=== PATIENT | female | born 1935 | race Caucasian/White ===

== ENCOUNTER 2016-09-23 18:01 | Inpatient (IN) | payer OTHER, MEDICAID ==
[~2016-09-23] VITALS: Ht 157.5 cm; Wt 54.4 kg
[2016-09-23 18:07] VITALS: BP 133/67
--- NOTE | 2016-09-23 18:24 | NUR ---
Patient going to CT via wheelchair per tech--from lobby.
--- NOTE | 2016-09-23 18:33 | NUR ---
Patient back from CT via wheelchair per [facility]--to lobby.
--- NOTE | 2016-09-23 18:53 | NUR ---
Patient to bed 03.
[2016-09-23 18:56] LABS: HEMATOCRIT 44.7 % (36-48); HEMOGLOBIN 14.7 g/dL (12.0-16.0); MEAN CORPUSCULAR HEMOGLOBIN 31 pg (27-31); MEAN CORPUSCULAR HGB CONC 33 g/dL (33-37); MEAN CORPUSCULAR VOLUME 93 fL (80-94); PLATELET COUNT (AUTO) 305 K/uL (140-450); RED BLOOD CELL COUNT(AUTO) 4.84 MIL/uL (4.20-5.40); RED CELL DISTRIBUTION WIDTH 12.8 % (11.6-13.7); WHITE BLOOD COUNT (AUTO) 16.2 K/uL (4.8-10.8)
--- NOTE | 2016-09-23 19:00 | NUR ---
PATIENT PRESENTS TO ED WITH C/O ABDOMINAL PAIN, NAUSEA AND VOMITING . PT STATES THE PAIN STARTED AT 1000, AND SHE STARTED VOMITING SHORTLY THEREAFTER . DENIES ANY DIARRHEA; SKIN IS PALE/WARM/DRY; AAOX4 WITH EVEN AND STEADY GAIT; LUNGS CLEAR BL; HR EVEN AND REGULAR; PT DENIES ANY FEVER, CP, SOB, OR COUGH AT THIS TIME; PATIENT STATES PAIN OF 10/10 AT THIS TIME; VSS; PATIENT POSITIONED FOR COMFORT; HOB ELEVATED; BEDRAILS UP X2; BED DOWN. ER MD MADE AWARE OF PT STATUS. GRANDDAUGHTER AT BEDSIDE.
[2016-09-23 19:03] LABS: ANION GAP 13.9 (8-16); CALCIUM 9.6 mg/dL (8.5-10.1); CARBON DIOXIDE 28.4 mmol/L (21-32); CHLORIDE 99 mmol/L (98-107); GLUCOSE 176 mg/dL (74-106); POTASSIUM 3.3 mmol/L (3.5-5.1); SODIUM SERUM 138 mmol/L (136-145); UREA NITROGEN, BLOOD 13 mg/dL (7-18)
--- NOTE | 2016-09-23 19:04 | NUR ---
Mounika AT BEDSIDE.
[2016-09-23 19:08] LABS: ALANINE AMINOTRANSFERASE 121 U/L (12-78); ALBUMIN 4.1 g/dL (3.4-5.0); ALKALINE PHOSPHATASE 98 U/L (46-116); ASPARTATE AMINOTRANSFERASE 199 U/L (15-37); LIPASE 225 U/L (73-393); TOTAL BILIRUBIN 2.1 mg/dL (0.0-1.0); TOTAL PROTEIN, SERUM 8.8 g/dL (6.4-8.2)
--- NOTE | 2016-09-23 19:10 | NUR ---
REPORT RECEIVED FROM VALENTINO JUDGE
[2016-09-23 19:13] LABS: BAND % (MANUAL) 18 % (0-8); EOSINOPHILS % (MANUAL) 0 % (0-4); LYMPHOCYTES % (MANUAL) 1 % (20-46); MONOCYTES % (MANUAL) 1 % (5-12); NEUTROPHILS % (MANUAL) 80 (43-65); PLATELET ESTIMATE ADEQUATE
--- NOTE | 2016-09-23 19:15 | NUR ---
Pt report given to VALENTINO ALMANZAR. Transfer of care at this time.
[2016-09-23] MEDS ORDERED: NACL 0.9% 1,000 ML IV ONE ×2 (19:30→20:55)
[2016-09-23] MEDS ORDERED: metroNIDAZOLE 500 MG/NS PREMIX 100 ML IV ONE (19:30)
[2016-09-23] MEDS ORDERED: LEVOFLOXACIN 750 MG/D5W PREMIX 150 ML IV ONE (19:30)
[2016-09-23] MEDS ORDERED: MORPHINE SULFATE 4 MG/ML SYR IVP ONE (19:50)
[2016-09-23] MEDS ORDERED: ONDANSETRON 4 MG/2 ML VIAL IVP ONE (19:50)
[2016-09-23] MEDS ORDERED: SIMV20TA1 PO (20:02)
[2016-09-23] MEDS ORDERED: AMLO10TA PO (20:02)
[2016-09-23] MEDS ORDERED: GABA100C PO (20:02)
[2016-09-23] MEDS ORDERED: NAPR500T1 PO (20:02)
[2016-09-23] MEDS ORDERED: GLIP10TA3 PO (20:02)
--- NOTE | 2016-09-23 20:15 | NUR ---
Ultrasound at bedside.
[2016-09-23 20:17] LABS: LACTIC ACID 2.5 mmol/L (0.4-2.0)
[2016-09-23] MEDS ORDERED: DOCUSATE SODIUM 100 MG GELCAP PO PRN (21:25)
[2016-09-23] MEDS ORDERED: HYDROcodone/APAP 5/325 MG 1 TAB TAB PO PRN (21:25)
[2016-09-23] MEDS ORDERED: MORPHINE SULFATE 2 MG/ML SYR IVP PRN (21:25)
[2016-09-23] MEDS ORDERED: ACETAMINOPHEN 325 MG TAB PO PRN (21:25)
[2016-09-23] MEDS ORDERED: POTASSIUM CHLORIDE 20% 40 MEQ/15 ML UDC PO ONE (21:35)
--- NOTE | 2016-09-23 21:48 | NUR ---
Patient will be admitted to care of DR OLEA. Admited to TELE. Will go to room. Belongings list completed. Report to VALENTINO CARTER
--- NOTE | 2016-09-23 21:52 | NUR ---
PT RETURN FROM XRAY
[2016-09-23 21:57] LABS: INR 1.1 (0.8-1.2); PARTIAL THROMBOPLASTIN TIME 23.1 secs (22-35.6); PROTHROMBIN TIME 10.4 secs (10.8-13.4)
[2016-09-23 22:00] VITALS: BP 128/68
--- NOTE | 2016-09-23 22:00 | NUR ---
Admitted from ER, with chief complaint of ABD PAIN. PT FAMILY AT BEDSIDE. ADMISSION SCREENING PERFORMED WITH ROUTE CONTRACTOR SERVICE. 80 y/o, Female, Cooperative, PT AOX4, ABLE TO VERBALIZE NEEDS. PT DENIES CHEST PAIN, SOB OR S/S OF ACUTE DISTRESS. PT C/O SLIGHT NAUSEA. ABDOMEN SOFT, NONTENDER. BOWEL SOUNDS ACTIVE, PT STATED LAST BM THIS MORNING. PT DENIES PAIN AT THIS TIME. DISCUSSED AND REVIEWED PLAN OF CARE WITH PT AND FAMILY. PT VERBALIZES UNDERSTANDING. WIRE WRAPPER MACHINE OPERATOR IN PLACE. SCDS IN PLACE. IV ACCESS ASYMPTOMATIC, PATENT AND INTACT. IVF INFUSING WELL. oriented to call light, bed, phone,television, bathroom, smoking policy, visiting hours, procedures, ID bracelet on. Belongings list checked. PT OBSERVED TO AMBULATE INDEPENDENTLY WITH STEADY GAIT AND STANDBY ASSISTANCE. SAFETY MEASURES ENSURED. CALL LIGHT WITHIN REACH. WILL CONTINUE TO MONITOR.
[2016-09-23 22:07] LABS: BILIRUBIN,DIRECT 1.1 mg/dL (0.0-0.3); CHOL/HDL RATIO 3.9 (1-4.5); FREE T4 (FREE THYROXINE) 1.19 ng/dL (0.76-1.46); THYROID STIMULATING HORMONE 2.06 uIU/mL (0.34-3.76)
[2016-09-23 22:18] LABS: APPEARANCE,URINE SL CLOUDY (CLEAR); BLOOD, URINE TRACE-I (NEGATIVE); COLOR,URINE YELLOW (YELLOW); LEUKOCYTE ESTERASE ,URINE TRACE (NEGATIVE); NITRITE, URINE NEGATIVE (NEGATIVE); PROTEIN,URINE TRACE (NEGATIVE); UGLUCOSE NEGATIVE (NEGATIVE)
[2016-09-23 22:28] LABS: BILIRUBIN,URINE NEGATIVE (NEGATIVE)
[2016-09-23 22:29] LABS: BACTERIA,URINE 4+ /HPF (None Seen); CALCIUM OXALATE CRYSTALS,UR 0-10 /HPF (None Seen)
[2016-09-23 22:43] LABS: AMPHETAMINE, URINE NEG. ng/ml (NEG <=1000); BARBITURATE, URINE NEG. ng/ml (NEG <=200); BENZODIAZEPINE, URINE NEG. ng/mL (NEG <=200); CANNABINOID, URINE NEG. ng/mL (NEG <=50); COCAINE, URINE NEG. ng/mL (NEG <=300); OPIATE, URINE NEG. ng/mL (NEG <=2000); PHENCYCLIDINE SCREEN,URINE NEG. ng/mL (NEG <=25)
[2016-09-23] MEDS: NACL 0.9% 500 ML IV SCH (23:06)
[2016-09-23] MEDS: ONDANSETRON 4 MG/2 ML VIAL IVP PRN (23:54)
--- NOTE | 2016-09-23 23:54 | NUR ---
WAS INFORMED BY DROPPER TANK STORAGE AND PT'S FAMILY THAT PT HAD A VOMITING EPISODE. ADMINISTERED ZOFRAN IV WITH EDUCATION ORDERED. PT TOLERATED WELL. WILL CONTINUE TO MONITOR.
[2016-09-24] VITALS: BP 130/65
[2016-09-24] MEDS ORDERED: PNEUMOCOCCAL VACCINE 23 MCG/0.5 ML VIAL IMVAC SCH (01:05)
[2016-09-24] MEDS ORDERED: INSULIN LISPRO SLIDING SCALE 100 UNITS/ML VIAL SUBQ PRN (01:35)
[2016-09-24] MEDS ORDERED: ZOLPIDEM 5 MG TAB PO PRN (01:35)
[2016-09-24] MEDS ORDERED: DEXTROSE 50% 50 ML SYR IVP PRN (01:35)
--- NOTE | 2016-09-24 01:40 | NUR ---
BLOOD SUGAR 153. WILL HOLD INSULIN COVERAGE DUE TO PT NPO AT THIS TIME. CONDITION STABLE. ALL NEEDS MET. SAFETY MEASURES ENSURED. CALL LIGHT WITHIN REACH.
--- NOTE | 2016-09-24 01:42 | NUR ---
RECEIVED CALL FROM DR OLEA. MADE AWARE OF PT INSOMNIA AND THAT PT IS DIABETIC. ORDERS PENDING FOR INSOMNIA PRN AND SLIDING SCALE INSULIN PROTOCOL. MADE MD AWARE THAT LEVAQUIN IV WAS ONLY ONE TIME ORDER, NO ORDERS, MD WILL SEE PT IN THE MORNING.
--- NOTE | 2016-09-24 02:30 | NUR ---
ADMINISTERED TAURUS FOR PT'S INSOMNIA. PT TOLERATED WELL. SAFETY MEASURES ENSURED. CALL LIGHT WITHIN REACH.
[2016-09-24] MEDS: NACL 0.9% 500 ML IV SCH (03:26)
[2016-09-24 04:00] VITALS: BP 108/54
[2016-09-24] MEDS ORDERED: metroNIDAZOLE 500 MG/NS PREMIX 100 ML IV ONE (04:28)
--- NOTE | 2016-09-24 04:30 | NUR ---
PT RESTING COMFORTABLY. CONDITION STABLE. ALL NEEDS MET. SAFETY MEASURES ENSURED. WILL CONTINUE TO MONITOR. FLAGYL 250MG IN 50ML NS PREMIX NOT AVAILABLE. WILL ADMINISTER HALF OF 500MG IN 100ML NS PREMIX AT THE ORDERED RATE 50ML/HR. PT EDUCATED, VERBALIZES UNDERSTANDING. IVF INFUSING WELL.
[2016-09-24] MEDS ORDERED: metroNIDAZOLE 250 MG/NS PREMIX 50 ML IV SCH (05:00)
[2016-09-24] MEDS: ONDANSETRON 4 MG/2 ML VIAL IVP PRN (05:36)
[2016-09-24 06:38] LABS: HEMATOCRIT 34.8 % (36-48); MEAN CORPUSCULAR HEMOGLOBIN 32 pg (27-31); MEAN CORPUSCULAR HGB CONC 34 g/dL (33-37); MEAN CORPUSCULAR VOLUME 92 fL (80-94); PLATELET COUNT (AUTO) 248 K/uL (140-450); RED BLOOD CELL COUNT(AUTO) 3.78 MIL/uL (4.20-5.40); RED CELL DISTRIBUTION WIDTH 13.1 % (11.6-13.7); WHITE BLOOD COUNT (AUTO) 29.2 K/uL (4.8-10.8)
[2016-09-24 06:47] LABS: ANION GAP 17.4 (8-16); CALCIUM 8.1 mg/dL (8.5-10.1); CARBON DIOXIDE 22.3 mmol/L (21-32); CHLORIDE 103 mmol/L (98-107); CREATININE 0.9 mg/dL (0.6-1.3); GLUCOSE 157 mg/dL (74-106); MAGNESIUM 1.5 mg/dL (1.8-2.4); PHOSPHORUS 4.1 mg/dL (2.5-4.9); POTASSIUM 3.7 mmol/L (3.5-5.1); SODIUM SERUM 139 mmol/L (136-145); UREA NITROGEN, BLOOD 13 mg/dL (7-18)
[2016-09-24] MEDS: BLOOD GLUCOSE MONITORING 1 DEV DEV FS SCH ×4 (06:50→20:40)
--- NOTE | 2016-09-24 06:51 | NUR ---
BLOOD SUGAR 153, WILL HOLD INSULIN COVERAGE, PT NPO. CONDITION STABLE.
--- NOTE | 2016-09-24 07:27 | NUR ---
ENDORSED PLAN OF CARE TO AM NURSE. CONDITION STABLE.
[2016-09-24 07:59] LABS: BAND % (MANUAL) 26 % (0-8); LYMPHOCYTES % (MANUAL) 2 % (20-46); MONOCYTES % (MANUAL) 2 % (5-12); NEUTROPHILS % (MANUAL) 70 (43-65)
[2016-09-24 08:00] VITALS: BP 120/62
[2016-09-24] MEDS ORDERED: MAG SULF 2000 MG/WATER PREMIX 50 ML IV SCH (08:00)
[2016-09-24] MEDS: FAMOTIDINE 20 MG TAB PO SCH (09:00)
[2016-09-24] MEDS: glipiZIDE 10 MG TAB PO SCH ×2 (09:00→20:40)
[2016-09-24] MEDS: PANTOPRAZOLE 40 MG INJ VIAL IVP SCH (10:08)
[2016-09-24] MEDS: GABAPENTIN 100 MG CAP PO SCH (10:09)
[2016-09-24] MEDS: amLODIPine 5 MG TAB PO SCH (10:09)
[2016-09-24] MEDS: LACTOBACILLUS RHAMNOSUS GG 1 EACH CAP PO SCH (10:10)
--- NOTE | 2016-09-24 10:22 | NUR ---
PATIENT HAS BEEN SCREENED AND CATEGORIZED MODERATE NUTRITION RISK. PATIENT WILL BE SEEN WITHIN 3-5 DAYS OF ADMISSION. 09/26/16-09/28/[address]
--- NOTE | 2016-09-24 11:29 | NUR ---
FAXED INITIAL REVIEW TO [phone] PHONE ASHLEE [phone]
[2016-09-24 12:00] VITALS: BP 121/68
[2016-09-24 14:24] LABS: ALANINE AMINOTRANSFERASE 193 U/L (12-78); ALBUMIN 2.9 g/dL (3.4-5.0); ALKALINE PHOSPHATASE 76 U/L (46-116); ANION GAP 15.3 (8-16); ASPARTATE AMINOTRANSFERASE 187 U/L (15-37); CALCIUM 8.1 mg/dL (8.5-10.1); CARBON DIOXIDE 23.4 mmol/L (21-32); CHLORIDE 104 mmol/L (98-107); CREATININE 0.9 mg/dL (0.6-1.3); GLUCOSE 98 mg/dL (74-106); POTASSIUM 3.7 mmol/L (3.5-5.1); SODIUM SERUM 139 mmol/L (136-145); TOTAL BILIRUBIN 3.7 mg/dL (0.0-1.0); TOTAL PROTEIN, SERUM 6.7 g/dL (6.4-8.2); UREA NITROGEN, BLOOD 12 mg/dL (7-18)
[2016-09-24] MEDS: metroNIDAZOLE 500 MG/NS PREMIX 100 ML IV SCH ×2 (14:32→20:39)
[2016-09-24 17:30] VITALS: BP 128/71
--- NOTE | 2016-09-24 17:53 | NUR ---
DR LOUISE PAGED, LEFT MESSAGE TO ASTRID ANSWERING SERVICE, PT BS 83 AN DPATIENT STILL NPO, CURRENTLY ON IVF NS.
--- NOTE | 2016-09-24 17:58 | NUR ---
SPOKE WITH DR. LOUISE AND SAID CONTINUE WITH NS IVF FOR NOW AND HOLD ALL DIABETIC MEDICATION WHILE PATIENT NPO.
[2016-09-24] MEDS ORDERED: LEVOFLOXACIN 750 MG/D5W PREMIX 150 ML IV ONE (18:30)
[2016-09-24] MEDS: NACL 0.9% 1,000 ML IV SCH ×2 (19:00→20:45)
--- NOTE | 2016-09-24 19:21 | NUR ---
SBAR REPORT GIVEN TO VALENTINO CLARK
--- NOTE | 2016-09-24 20:40 | NUR ---
SPOKE TO DR. GARCÍA AND NOTIFIED THE RESULT OF HIDA SCAN AND NEW ORDERS WERE GIVEN (PLS SEE CPOE.) NEW ORDERS NOTED AND CARRIED OUT. WILL CONTINUE TO MONITOR.
[2016-09-24] MEDS: SIMVASTATIN 20 MG TAB PO SCH (20:43)
--- NOTE | 2016-09-24 21:00 | NUR ---
PT SIGNED THE CONSENT FOR ERCP AFTER EXPLAINING THE PROCEDURE TO PT AND FAMILY AT BEDSIDE AND VERBALIZED UNDERSTANDING. CALL LIGHT WITHIN REACH. WILL CONTINUE TO MONITOR.
--- NOTE | 2016-09-24 21:40 | NUR ---
PT IS OFF THE UNIT GOING TO [facility] FOR ERCP.
[2016-09-24] MEDS ORDERED: PROPOFOL 200 MG/20 ML VIAL IV ONE (21:56)
--- NOTE | 2016-09-24 23:20 | NUR ---
CAME BACK FROM O.R[facility] IN STABLE CONDITION WITH VSS. WILL CONTINUE TO MONITOR.
[2016-09-25] VITALS: BP 124/68
[2016-09-25] MEDS: NACL 0.9% 1,000 ML IV SCH ×2 (00:18→16:06)
--- NOTE | 2016-09-25 01:00 | NUR ---
PT IS SLEEPING RIGHT NOW BUT EASILY AROUSABLE. NO S/S OF ANY DISCOMFORT AT THIS TIME. ALL NEEDS ARE ATTENDED. CALL LIGHT WITHIN REACH. WILL CONTINUE TO MONITOR.
[2016-09-25] MEDS: metroNIDAZOLE 500 MG/NS PREMIX 100 ML IV SCH ×3 (04:30→21:00)
--- NOTE | 2016-09-25 05:30 | NUR ---
AM CARE RENDERED. BED LINEN CHANGED. INSTRUCTED PATIENT TO REPOSITION. KEPT CLEAN AND DRY. CALL LIGHT WITHIN REACH. WILL CONTINUE TO MONITOR.
[2016-09-25 07:05] LABS: HEMOGLOBIN 12.4 g/dL (12.0-16.0); MEAN CORPUSCULAR HEMOGLOBIN 32 pg (27-31); MEAN CORPUSCULAR HGB CONC 34 g/dL (33-37); MEAN CORPUSCULAR VOLUME 93 fL (80-94); PLATELET COUNT (AUTO) 217 K/uL (140-450); RED BLOOD CELL COUNT(AUTO) 3.87 MIL/uL (4.20-5.40); RED CELL DISTRIBUTION WIDTH 13.2 % (11.6-13.7); WHITE BLOOD COUNT (AUTO) 17.5 K/uL (4.8-10.8)
[2016-09-25 07:14] LABS: ALANINE AMINOTRANSFERASE 150 U/L (12-78); ALBUMIN 2.7 g/dL (3.4-5.0); ALKALINE PHOSPHATASE 78 U/L (46-116); ANION GAP 13.1 (8-16); ASPARTATE AMINOTRANSFERASE 126 U/L (15-37); CALCIUM 7.9 mg/dL (8.5-10.1); CARBON DIOXIDE 24.1 mmol/L (21-32); CHLORIDE 106 mmol/L (98-107); CREATININE 0.8 mg/dL (0.6-1.3); GLUCOSE 94 mg/dL (74-106); MAGNESIUM 2.1 mg/dL (1.8-2.4); POTASSIUM 3.2 mmol/L (3.5-5.1); SODIUM SERUM 140 mmol/L (136-145); TOTAL BILIRUBIN 3.1 mg/dL (0.0-1.0); TOTAL PROTEIN, SERUM 6.6 g/dL (6.4-8.2); UREA NITROGEN, BLOOD 9 mg/dL (7-18)
--- NOTE | 2016-09-25 07:20 | NUR ---
RECEIVED PT IN BED. AWAKE, ALERT ORIENTED, X4. NO SOB NOTED. DENIES ANY PAIN OR DISCOMFORT AT THIS TIME. KEPT PT ON NPO EXCEPT MEDS. FAMILY AT BEDSIDE. CALL LIGHT WITHIN REACH. SAFETY PRECAUTION IN PLACE.
--- NOTE | 2016-09-25 07:30 | NUR ---
PT ENDORSE TO NEXT SHIFT FOR CONTINUITY OF CARE. PT ON STABLE CONDITION. Addendum: 09/25/16 at 2018 by Janett Singer RN DISREGARD ABOVE DOCUMENTATION. WRONG TIME
[2016-09-25 07:36] LABS: BAND % (MANUAL) 10 % (0-8); LYMPHOCYTES % (MANUAL) 10 % (20-46); MONOCYTES % (MANUAL) 3 % (5-12); NEUTROPHILS % (MANUAL) 77 (43-65)
[2016-09-25 08:00] VITALS: BP 131/66
[2016-09-25] MEDS: glipiZIDE 10 MG TAB PO SCH ×2 (09:00→20:51)
[2016-09-25] MEDS ORDERED: LACTOBACILLUS RHAMNOSUS GG 1 EACH CAP PO SCH (09:00)
--- NOTE | 2016-09-25 09:00 | NUR ---
order for heparin sodium 5,[address] GARCIA, DUE TO PT POSSIBLE FOR SURGERY.
[2016-09-25] MEDS: LACTOBACILLUS RHAMNOSUS GG 1 EACH CAP PO SCH (09:04)
[2016-09-25] MEDS: PANTOPRAZOLE 40 MG INJ VIAL IVP SCH (09:04)
[2016-09-25] MEDS: BLOOD GLUCOSE MONITORING 1 DEV DEV FS SCH ×4 (09:04→20:47)
[2016-09-25] MEDS: amLODIPine 5 MG TAB PO SCH (09:05)
[2016-09-25] MEDS: GABAPENTIN 100 MG CAP PO SCH (09:05)
[2016-09-25] MEDS: FAMOTIDINE 20 MG TAB PO SCH (09:05)
[2016-09-25] MEDS ORDERED: BENZOCAINE/MENTHOL 1 LOZ MM PRN (10:55)
[2016-09-25] MEDS ORDERED: guaiFENesin DM 200/20 MG-10 ML 10 ML UDC PO PRN (10:55)
[2016-09-25] MEDS ORDERED: POTASSIUM CHLORIDE 10 MEQ TABER PO SCH (11:10)
[2016-09-25 16:00] VITALS: BP 136/66
--- NOTE | 2016-09-25 16:38 | NUR ---
CALLED DR. FRANCE'S EXCHANGE TO FOLLOW UP WITH DOCTOR REGARDING PT SURGERY FOR CHOLELITHIASIS. AWAITING CALL BACK.
--- NOTE | 2016-09-25 16:57 | NUR ---
DR. FRANCE CALLED BACK AND SPOKE WITH CHARGE NURSE HE SAID HE WILL COME HERE AND WOULD WANT TO SPEAK WITH FAMILY LATER WHEN HE ARRIVE. CALLED GRAND DAUGHTER CHANTEL MADE THEM AWARE. SHE SAID THAT SHE WILL GET READY AND COME TO THE HOSPITAL NOW.
--- NOTE | 2016-09-25 18:05 | NUR ---
DR. FRANCE CAME AND HE SAID HE WANTS PATIENT TO TRANSFER TO [place] AND HE WILL ACCEPT PATIENT THERE. CALLED SIERRA FROM [place] SAID TO FAX OVER FACE SHEET. CALLED VISHNU [facility]BBS AND MADE AWARE OF SITUATION. I CALLED [employer] AND SPOKE TO CONSUELO AND GAVE ALL INFO TO HER. SHE SAID SHE WILL CALL US BACK FOR AUTHORIZATION.
[2016-09-25] MEDS ORDERED: LACT10CA PO (18:08)
[2016-09-25] MEDS ORDERED: DEXT150S13 IV (18:08)
[2016-09-25] MEDS ORDERED: BLOO1STR10 FS (18:08)
[2016-09-25] MEDS ORDERED: METR500S14 IV (18:08)
[2016-09-25] MEDS ORDERED: HEPA500055 SUBQ (18:08)
[2016-09-25] MEDS ORDERED: HUMSLIDE SUBQ (18:08)
--- NOTE | 2016-09-25 18:45 | NUR ---
CONSUELO FROM [facility] CALLED AND GAVE AUTH FOR INPATIENT TO [place] AUTH#[id number], TRANSPORT AUTH #[id number]*ANC. CALLED SIERRA FROM [place] SHE SAID SHE WILL CALL US BACK AFTER 7:30 PM.
--- NOTE | 2016-09-25 18:53 | NUR ---
CALLED [facility] AND SPOKE TO JANKENYNE AND PATIENT PUT ON WILL CALL.
--- NOTE | 2016-09-25 19:20 | NUR ---
REPORT GIVEN TO NEXT SHIFT FOR CONTINUITY OF CARE. PT ON STABLE CONDITION.
--- NOTE | 2016-09-25 19:48 | NUR ---
SIERRA FROM [place] CALLED AND GAVE ROOM # [id number], CALL REPORT TO .
--- NOTE | 2016-09-25 20:00 | NUR ---
RECEIVED ALERT,ORIENTED,[place] SPEAKING ONLY. AFEBRILE,NOT IN ACUTE DISTRESS. DENIES ANY PAIN OR DISCOMFORT. PT.FOR TRANSFER TO [facility]. AWAITING CALL BACK [employer]M [employer] CHIEF MARSHAL SIERRA FOR BED ASSIGNMENT. DAUGHTER AT BEDSIDE. VS STABLE, WILL CONTINUE TO MONITOR. NEEDS ATTENDED.
--- NOTE | 2016-09-25 20:07 | NUR ---
PNEUMONIA VACCINE 0.5 ML IM GIVEN. AFTERCARE INSTRUCTIONS ALSO GIVEN TO PATIENT/FAMILY. VERBALIZED UNDERSTANDING.
[2016-09-25 20:15] VITALS: BP 141/70
--- NOTE | 2016-09-25 20:16 | NUR ---
CALLED [facility] TO GIVE REPORT. SPOKE WITH KNOCK OUT HAND ROMA. KILO AVELAR NOT AVAILABLE TO TAKE REPORT. SHE WILL HAVE HER CALL [facility] BACK. [facility] CONTACTED FOR TRANSPORT. ETA IS 1 HOUR.
--- NOTE | 2016-09-25 20:30 | NUR ---
CALLED [facility]. REPORT GIVEN TO KILO AVELAR.
--- NOTE | 2016-09-25 20:47 | NUR ---
[id number]. NO INSULIN COVERAGE NEEDED.
[2016-09-25] MEDS: SIMVASTATIN 20 MG TAB PO SCH (20:51)
--- NOTE | 2016-09-25 20:51 | NUR ---
ZOCOR PO GIVEN. OTHER DUE MEDS NOT GIVEN DUE TO NPO AND PLANNED SURGERY. [facility] HERE TO BALL WORKER PT. REPORT GIVEN TO EMT OMEGA.
[2016-09-25] MEDS ORDERED: LEVOFLOXACIN 750 MG/D5W PREMIX 150 ML IV SCH (21:00)
--- NOTE | 2016-09-25 21:01 | NUR ---
PT.LEFT VIA JORDAN BANKS.
--- NOTE | 2016-09-25 21:03 | NUR ---
KILO AVELAR FROM [facility] CALLED BACK. MADE AWARE OF ACCUCHECK RESULT.
== END 2016-09-25 21:00 | disposition short-term general hospital (02) | DRG 871 ==
LOC: MED 18:01 → MTU 21:51
PROVIDERS: ADMIT Family Medicine; ATTEND Family Medicine
PROC: CF1C1ZZ Planar Nuclear Medicine Imaging of Hepatobiliary System, All using Technetium 99m (Tc-99m) (ICD-10-PCS; 2016-09-24)
PROC: 0DJ08ZZ Inspection of Upper Intestinal Tract, Via Natural or Artificial Opening Endoscopic (ICD-10-PCS; principal; 2016-09-24 21:30)
DX: A41.9 Sepsis, unspecified organism (principal); N17.0 Acute kidney failure with tubular necrosis; E43 Unspecified severe protein-calorie malnutrition; K80.12 Calculus of gallbladder with acute and chronic cholecystitis without obstruction; N39.0 Urinary tract infection, site not specified; K83.0 Cholangitis; R74.0 Nonspecific elevation of levels of transaminase and lactic acid dehydrogenase [LDH]; E87.6 Hypokalemia; E11.65 Type 2 diabetes mellitus with hyperglycemia; K57.10 Diverticulosis of small intestine without perforation or abscess without bleeding; I10 Essential (primary) hypertension; E78.5 Hyperlipidemia, unspecified; M19.90 Unspecified osteoarthritis, unspecified site; E89.0 Postprocedural hypothyroidism; E66.9 Obesity, unspecified; Z68.21 Body mass index [BMI] 21.0-21.9, adult; Z79.899 Other long term (current) drug therapy
CPT/HCPCS: 36415; 71020; 74000; 76705; 78445; 80048; 80053; 80305; 81001; 82150; 82248; 82948; 83036; 83605; 83690; 83735; 83880; 84100; 84439; 84443; 85025; 85610; 85730; 87040; 87081; 87086; 87186; 90732; 93005; 93925; 93970; 96365; 96375; 99291; A9510; C9113; J1644; J1815; J1956; J2270; J2405; J2704; J3475; J3490; J7030; Q0092